=== PATIENT | female | born 1995 | race Two or more races ===

== ENCOUNTER 2018-02-22 12:33 | Emergency (ER) | payer OTHER ==
[~2018-02-22] VITALS: Ht 165.1 cm; Wt 88.5 kg
[2018-02-22 13:02] VITALS: Ht 165.1 cm; Wt 88.5 kg
[2018-02-22 17:28] VITALS: BP 134/70
== END 2018-02-22 17:28 | disposition home or self-care (01) ==
LOC: ED 12:33
DX: G89.29 Other chronic pain (principal); R10.2 Pelvic and perineal pain

== ENCOUNTER 2018-02-23 03:13 | Inpatient (IN) | payer OTHER ==
[~2018-02-23] VITALS: Ht 165.1 cm; Wt 84.6 kg
[2018-02-23 03:17] VITALS: Ht 165.1 cm; Wt 84.6 kg
[2018-02-23 04:12] LABS: BASOPHIL % 0.4 % (0-2); RED CELL DISTRIBUTION WIDTH 12.6 % (11.5-14.5)
[2018-02-23 04:18] LABS: PLATELET COUNT 447 x10^3mcL (130-400)
[2018-02-23 04:20] LABS: CARBON DIOXIDE 23.6 mmol/L (21-32); CHLORIDE SERUM 102 mmol/L (98-107); CREATININE SERUM 0.9 mg/dL (0.6-1.0); GFR1 > 60 mL/min; GLUCOSE SERUM 126 mg/dL (74-106); POTASSIUM SERUM 3.7 mmol/L (3.5-5.1); SODIUM SERUM 140 mmol/L (136-145)
[2018-02-23 04:24] LABS: ALBUMIN 4.4 g/dL (3.4-5.0); ALKALINE PHOSPHATASE 44 U/L (46-116); ALT/SGPT 117 U/L (14-59); AST/SGOT 51 U/L (15-37); BILIRUBIN TOTAL 0.5 mg/dL (0.20-1.00)
[2018-02-23 05:27] LABS: FREE T4 1.47 ng/dL (0.76-1.46)
[2018-02-23 05:36] LABS: AMPHETAMINE QUAL UR NONE DETECTED (See below)
[2018-02-23 13:03] VITALS: BP 132/84
[2018-02-23 19:03] VITALS: BP 127/86
[2018-02-23 21:13] VITALS: BP 129/81
[2018-02-24 05:45] VITALS: BP 129/80
[2018-02-24 08:00] VITALS: BP 127/78
[2018-02-24 13:36] VITALS: BP 127/78
== END 2018-02-24 15:14 | disposition home or self-care (01) | DRG 52 ==
LOC: ED 03:13 → DU 07:14
PROVIDERS: Emergency Medicine
DX: G93.41 Metabolic encephalopathy (principal); E78.5 Hyperlipidemia, unspecified; F12.10 Cannabis abuse, uncomplicated; Z91.018 Allergy to other foods; F23 Brief psychotic disorder; F32.9 Major depressive disorder, single episode, unspecified; F41.9 Anxiety disorder, unspecified
CPT/HCPCS: 84439; 90658; G0480; J1630; J7030